=== PATIENT | female | born 1940 | race Asian ===

== ENCOUNTER 2016-12-30 08:42 | Outpatient (CLI) | payer MEDICARE, OTHER ==
--- NOTE | 2016-12-30 12:02 | DEXA Report ---
DEXA SCAN: 12/30/2016 CLINICAL INDICATION: Postmenopausal. TECHNIQUE: Dual energy x-ray absorptiometry (DXA) was performed on a Whatser system. Regions measured are the AP spine, femoral neck, and, if needed, forearm. COMPARISON: None. In accordance with the International Society for Clinical Densitometry (ISCD) guidelines, data from previous exams may be reanalyzed using current recommendations and techniques. This is done to allow a more accurate basis for comparison with the current study. FINDINGS: The data for the lumbar spine is as follows: REGION BMD (g/cm/cm) T-SCORE Z-SCORE L1 0.980 -1.2 0.8 L2 1.010 -1.6 0.5 L3 1.109 -0.8 1.3 L4 1.205 0.0 2.1 TOTAL 1.085 -0.8 1.2 NOTE: All evaluable vertebrae are used for classification. The data for the hip is as follows: REGION BMD (g/cm/cm) T-SCORE Z-SCORE Neck 0.797 -1.7 0.5 TOTAL 0.827 -1.4 0.6 NOTE: The femoral neck or total proximal femur, whichever is lowest, is used for classification. IMPRESSION: THE WHO CLASSIFICATION BASED ON THE INTERNATIONAL REFERENCE STANDARD IS OSTEOPENIA. THE FRACTURE RISK IS INCREASED. RECOMMENDATION: Patients with diagnosis of osteoporosis or osteopenia should have regular bone mineral density assessment. For those eligible for Medicare, routine testing is allowed once every 2 years. Testing frequency can be increased for patients who have rapidly progressing disease or for those who are receiving medical therapy to restore bone mass. COMMENT: World Health Organization (WHO) definitions for osteoporosis and osteopenia: NORMAL BMD: T-score at -1.0 or higher, fracture risk is low. OSTEOPENIA BMD: T-score between -1.0 and -2.5, fracture risk is increased. OSTEOPOROSIS BMD: T-score at -2.5 or lower, fracture risk high. National Osteoporosis Foundation recommends: 1. Obtain adequate dietary calcium (at least 1200 mg per day) and vitamin D (400 -800 international units per day). 2. Participate, as appropriate, in regular weightbearing and muscle- strengthening exercise. 3. Avoid tobacco use and reduce alcohol and caffeine intake. 4. For more detailed information see the website at www.NOF.org. MTDD
== END 2016-12-30 08:43 | disposition home or self-care (01) ==
LOC: DI 08:42
PROVIDERS: ATTEND Family Medicine
DX: M85.88 Other specified disorders of bone density and structure, other site (principal)
CPT/HCPCS: 77080

== ENCOUNTER 2017-01-30 09:25 | Outpatient (CLI) | payer MEDICARE, OTHER ==
--- NOTE | 2017-01-31 19:15 | Mammography Report ---
DIGITAL SCREENING MAMMOGRAM: 01/30/2017 CLINICAL INDICATION: A 76-year-old for screening. COMPARISON: 01/2016, 08/2014, 08/2013, 08/2012, 08/2011, 07/2010, 07/2009. TECHNIQUE: Routine CC and MLO projections were obtained of the breasts. FINDINGS: The breasts again demonstrate heterogeneously dense fibroglandular parenchyma bilaterally. Coarse and punctate, typically benign calcifications are present. No suspicious masses, clustered microcalcifications, or regions of architectural distortion are identified. IMPRESSION: BENIGN FINDINGS. RECOMMENDATION: Routine annual screening unless otherwise clinically indicated. BI-RADS category 2, benign findings. STANDARD QUALIFYING STATEMENTS 1. This examination was reviewed with the aid of Computer-Aided Detection (CAD). 2. A negative or benign imaging report should not delay biopsy if clinically suspicious findings are present. Consider surgical consultation if warranted. More than 5% of cancers are not identified by i maging. 3. Dense breasts may obscure an underlying neoplasm. JOB #: [id number] EXT JOB #:[id number]
== END 2017-01-30 09:26 | disposition home or self-care (01) ==
LOC: DI.N 09:25
PROVIDERS: ATTEND Family Medicine
DX: Z12.31 Encounter for screening mammogram for malignant neoplasm of breast (principal)
CPT/HCPCS: 77067

== ENCOUNTER 2017-11-22 07:33 | Outpatient (CLI) | payer MEDICARE, OTHER ==
[2017-11-22 13:35] LABS: BASOPHILS # (AUTO) 0.1 10^3/uL (0.0-0.1); BASOPHILS % (AUTO) 1.1 %; EOSINOPHILS # (AUTO) 0.2 10^3/uL (0.0-0.7); HGB - HEMOGLOBIN 13.6 g/dL (12.0-16.0); LYMPHOCYTES # (AUTO) 1.6 10^3/uL (1.5-3.5); LYMPHOCYTES % (AUTO) 28.2 %; MEAN CORPUSCULAR HEMOGLOBIN 31.4 pg (27.0-31.0); MEAN CORPUSCULAR HGB CONC 33.8 g/dL (32.0-36.0); MEAN CORPUSCULAR VOLUME 92.9 fL (81.0-99.0); MEAN PLATELET VOLUME 8.4 fL (7.9-10.8); MONOCYTES # (AUTO) 0.4 10^3/uL (0.0-1.0); MONOCYTES % (AUTO) 7.4 %; NEUTROPHILS # (AUTO) 3.4 10^3/uL (1.5-6.6); NEUTROPHILS % (AUTO) 60.3 %; PLT - PLATELET COUNT 307 10^3/uL (130-450); RED BLOOD COUNT 4.34 10^6/uL (4.20-5.40); RED CELL DISTRIBUTION WIDTH 13.6 % (12.0-15.0); WHITE BLOOD COUNT 5.6 x10^3/uL (4.8-10.8)
[2017-11-22 14:06] LABS: THYROID STIMULATING HORMONE 0.27 uIU/mL (0.34-5.60)
[2017-11-22 14:07] LABS: ALBUMIN 4.1 g/dL (3.2-5.5); ALBUMIN/GLOBULIN RATIO 1.3 (1.0-2.2); ALKALINE PHOSPHATASE 65 IU/L (42-121); ALT ALANINE AMINOTRANSFERASE 22 IU/L (10-60); AST ASPARTATE AMINOTRANSFERASE 26 IU/L (10-42); BUN - BLOOD UREA NITROGEN 15 mg/dL (6-20); CALCIUM 9.4 mg/dL (8.5-10.3); CARBON DIOXIDE - CO2 29 mmol/L (21-32); CHLORIDE 102 mmol/L (101-111); CHOL/HDL RATIO 3.5 (<4.4); CHOLESTEROL 235 mg/dL; CREATININE 0.9 mg/dL (0.4-1.0); GFR - MDRD 61 (>89); GLUCOSE 116 mg/dL (70-100); HDL CHOLESTEROL 68 mg/dL; LDL CHOLESTEROL,CALCULATED 135 mg/dL; SODIUM 138 mmol/L (135-145); TOTAL PROTEIN 7.3 g/dL (6.7-8.2); VLDL CHOLESTEROL 32 mg/dL
[2017-11-22 14:35] LABS: HB2 TOTAL 14.6 g/dL; HEMOGLOBIN A1C 0.66 g/dL; HEMOGLOBIN A1C % 6.3 % (4.6-6.2)
[2017-11-22 15:06] LABS: FREE T4 (FREE THYROXINE) 1.27 ng/dL (0.58-1.64)
== END 2017-11-22 07:34 | disposition home or self-care (01) ==
LOC: LAB.WCP 07:33
PROVIDERS: ATTEND Family Medicine
DX: E11.9 Type 2 diabetes mellitus without complications (principal)
CPT/HCPCS: 36415; 80053; 80061; 82043; 83036; 83721; 84439; 84443; 85025

== ENCOUNTER 2018-02-13 09:26 | Outpatient (CLI) | payer MEDICARE, OTHER ==
--- NOTE | 2018-02-15 11:53 | Mammography Report ---
Reason: SCREENING MAMMO Procedure Date: 02/13/2018 Accession Number: [id number] / [id number] Procedure: MGN - Screening Mammo Dig Bilat CPT Code: FULL RESULT: EXAM: Screening Mammo Dig Bilat DATE: 02/13/2018 9:45 AM CLINICAL HISTORY: 77-year-old female for screening. TECHNIQUE: Bilateral CC and MLO views were obtained. COMPARISON: 01/30/2017, 01/19/2016, 09/12/2014, 09/03/2013. FINDINGS: The breasts demonstrate heterogeneously dense fibroglandular parenchyma bilaterally. Typically benign vascular calcifications as well as typically benign coarse calcifications are identified. No suspicious masses, clustered microcalcifications, or regions of architectural distortion are identified. IMPRESSION: Benign findings RECOMMENDATION: Routine annual screening unless otherwise clinically indicated. BIRADS CATEGORY 2: Benign findings STANDARD QUALIFYING STATEMENTS: 1. This examination was reviewed with the aid of Computer-Aided Detection (CAD). 2. A negative or benign imaging report should not delay biopsy if clinically suspicious findings are present. Consider surgical consultation if warrented. More than 5% of cancers are not identified by imaging. 3. Dense breasts may obscure an underlying neoplasm. 4. This examination was reviewed without the aid of 3D breast imaging (tomosynthesis).
== END 2018-02-13 09:27 | disposition home or self-care (01) ==
LOC: DI.N 09:26
DX: Z12.31 Encounter for screening mammogram for malignant neoplasm of breast (principal)
CPT/HCPCS: 77067

== ENCOUNTER 2018-10-10 05:45 | Day surgery (SDC) | payer MEDICARE, OTHER ==
[2018-10-10] MEDS ORDERED: LACTATED RINGERS 1,000 ML IV ONE (07:04)
[2018-10-10] MEDS ORDERED: MIDAZOLAM 2 MG/2 ML VIAL IVP ONE (08:05)
[2018-10-10] MEDS ORDERED: fentaNYL 250 MCG/5 ML VIAL IVP ONE (08:05)
[2018-10-10 08:34] VITALS: BP 107/70
[2018-10-10] MEDS ORDERED: ONDANSETRON ODT 4 MG TABLET ONE (09:36)
== END 2018-10-10 05:46 | disposition home or self-care (01) ==
LOC: SDS 05:45
PROVIDERS: ATTEND Surgery
PROC: 0DBE8ZZ Excision of Large Intestine, Via Natural or Artificial Opening Endoscopic (ICD-10-PCS; 2018-10-10)
PROC: 0DBK8ZZ Excision of Ascending Colon, Via Natural or Artificial Opening Endoscopic (ICD-10-PCS; principal; 2018-10-10 07:30)
DX: Z12.11 Encounter for screening for malignant neoplasm of colon (principal); D12.3 Benign neoplasm of transverse colon; D12.5 Benign neoplasm of sigmoid colon; K63.5 Polyp of colon; K57.30 Diverticulosis of large intestine without perforation or abscess without bleeding; Z80.0 Family history of malignant neoplasm of digestive organs
CPT/HCPCS: 45380; J3010; J7120; Q0162

== ENCOUNTER 2019-01-01 08:00 | Outpatient (CLI) | payer MEDICARE, OTHER ==
[2019-01-01 12:39] LABS: BASOPHILS # (AUTO) 0.1 10^3/uL (0.0-0.1); EOSINOPHILS # (AUTO) 0.2 10^3/uL (0.0-0.7); EOSINOPHILS % (AUTO) 3.8 %; LYMPHOCYTES # (AUTO) 1.9 10^3/uL (1.5-3.5); LYMPHOCYTES % (AUTO) 31.7 %; MEAN CORPUSCULAR HEMOGLOBIN 29.3 pg (27.0-31.0); MEAN CORPUSCULAR HGB CONC 31.6 g/dL (32.0-36.0); MEAN PLATELET VOLUME 10.2 fL (7.9-10.8); MONOCYTES # (AUTO) 0.5 10^3/uL (0.0-1.0); MONOCYTES % (AUTO) 8.5 %; NEUTROPHILS # (AUTO) 3.4 10^3/uL (1.5-6.6); NEUTROPHILS % (AUTO) 54.8 %; PLT - PLATELET COUNT 323 10^3/uL (130-450); RED BLOOD COUNT 4.43 10^6/uL (4.20-5.40); RED CELL DISTRIBUTION WIDTH 13.5 % (12.0-15.0); WHITE BLOOD COUNT 6.1 x10^3/uL (4.8-10.8)
[2019-01-01 12:46] LABS: ALBUMIN/GLOBULIN RATIO 1.1 (1.0-2.2); ALKALINE PHOSPHATASE 69 IU/L (42-121); ALT ALANINE AMINOTRANSFERASE 19 IU/L (10-60); AST ASPARTATE AMINOTRANSFERASE 24 IU/L (10-42); BILIRUBIN,TOTAL 0.8 mg/dL (0.2-1.0); BUN - BLOOD UREA NITROGEN 13 mg/dL (6-20); CALCIUM 9.1 mg/dL (8.5-10.3); CARBON DIOXIDE - CO2 30 mmol/L (21-32); CHLORIDE 105 mmol/L (101-111); CHOL/HDL RATIO 3.3 (<4.4); CHOLESTEROL 201 mg/dL; CREATININE 0.8 mg/dL (0.4-1.0); GFR - MDRD 69 (>89); GLUCOSE 104 mg/dL (70-100); HB2 TOTAL 13.4 g/dL; HDL CHOLESTEROL 61 mg/dL; HEMOGLOBIN A1C 0.6 g/dL; HEMOGLOBIN A1C % 6.2 % (4.6-6.2); LDL CHOLESTEROL,CALCULATED 120 mg/dL; SODIUM 141 mmol/L (135-145); TOTAL PROTEIN 7.5 g/dL (6.7-8.2); VLDL CHOLESTEROL 20 mg/dL
[2019-01-01 13:01] LABS: CREATININE,URINE 82.4 mg/dL; MICROALBUMIN,URINE 1.4 mg/dL (0-300.0)
[2019-01-01 14:15] LABS: FREE T4 (FREE THYROXINE) 1.59 ng/dL (0.58-1.64)
== END 2019-01-01 23:59 | disposition home or self-care (01) ==
LOC: LAB.WCP 08:00
PROVIDERS: ATTEND Family Medicine
DX: E11.9 Type 2 diabetes mellitus without complications (principal); E03.9 Hypothyroidism, unspecified
CPT/HCPCS: 36415; 80053; 80061; 82043; 82570; 83036; 83721; 84439; 84443; 85025

== ENCOUNTER 2019-12-20 08:00 | Outpatient (CLI) | payer MEDICARE, OTHER ==
[2019-12-20 11:35] LABS: BASOPHILS # (AUTO) 0.1 10^3/uL (0.0-0.1); BASOPHILS % (AUTO) 0.8 %; EOSINOPHILS # (AUTO) 0.1 10^3/uL (0.0-0.7); EOSINOPHILS % (AUTO) 1.6 %; HGB - HEMOGLOBIN 14.4 g/dL (12.0-16.0); LYMPHOCYTES # (AUTO) 1.8 10^3/uL (1.5-3.5); LYMPHOCYTES % (AUTO) 28.5 %; MEAN CORPUSCULAR HEMOGLOBIN 31.1 pg (27.0-31.0); MEAN CORPUSCULAR VOLUME 94.4 fL (81.0-99.0); MEAN PLATELET VOLUME 9.9 fL (7.9-10.8); MONOCYTES # (AUTO) 0.5 10^3/uL (0.0-1.0); MONOCYTES % (AUTO) 7.5 %; NEUTROPHILS # (AUTO) 3.8 10^3/uL (1.5-6.6); NEUTROPHILS % (AUTO) 61.3 %; PLT - PLATELET COUNT 323 10^3/uL (130-450); RED BLOOD COUNT 4.63 10^6/uL (4.20-5.40); RED CELL DISTRIBUTION WIDTH 12.9 % (12.0-15.0); WHITE BLOOD COUNT 6.1 x10^3/uL (4.8-10.8)
[2019-12-20 12:14] LABS: ALBUMIN 4.2 g/dL (3.2-5.5); ALBUMIN/GLOBULIN RATIO 1.2 (1.0-2.2); ALKALINE PHOSPHATASE 71 IU/L (42-121); ALT ALANINE AMINOTRANSFERASE 19 IU/L (10-60); AST ASPARTATE AMINOTRANSFERASE 21 IU/L (10-42); BILIRUBIN,TOTAL 1.2 mg/dL (0.2-1.0); BUN - BLOOD UREA NITROGEN 17 mg/dL (6-20); CARBON DIOXIDE - CO2 29 mmol/L (21-32); CHLORIDE 99 mmol/L (101-111); CHOL/HDL RATIO 3.8 (<4.4); CHOLESTEROL 231 mg/dL; GLUCOSE 124 mg/dL (70-100); HDL CHOLESTEROL 61 mg/dL; LDL CHOLESTEROL,CALCULATED 147 mg/dL; LDL/HDL RATIO 2.4 (<4.4); SODIUM 135 mmol/L (135-145); TOTAL PROTEIN 7.8 g/dL (6.7-8.2); VLDL CHOLESTEROL 23 mg/dL
[2019-12-20 12:20] LABS: HEMOGLOBIN A1c% 6.5 % (4.27-6.07)
[2019-12-20 12:29] LABS: CREATININE,URINE 61.1 mg/dL; MICROALBUM/CREATININE RATIO,UR 3.3 ug/mg (<30.0); MICROALBUMIN,URINE 0.2 mg/dL (0-300.0)
[2019-12-20 13:15] LABS: FREE T4 (FREE THYROXINE) 1.46 ng/dL (0.58-1.64)
== END 2019-12-20 23:59 | disposition home or self-care (01) ==
LOC: LAB.WCP 08:00
PROVIDERS: ATTEND Family Medicine
DX: E11.9 Type 2 diabetes mellitus without complications (principal); E03.9 Hypothyroidism, unspecified; E78.5 Hyperlipidemia, unspecified; I10 Essential (primary) hypertension
CPT/HCPCS: 36415; 80053; 80061; 82043; 82570; 83036; 83721; 84439; 84443; 85025

== ENCOUNTER 2021-01-07 08:00 | Outpatient (CLI) | payer MEDICARE, OTHER ==
[2021-01-07 12:15] LABS: BASOPHILS # (AUTO) 0.1 10^3/uL (0.0-0.1); EOSINOPHILS # (AUTO) 0.2 10^3/uL (0.0-0.7); EOSINOPHILS % (AUTO) 2.4 %; HCT - HEMATOCRIT 44.1 % (37.0-47.0); HGB - HEMOGLOBIN 14.3 g/dL (12.0-16.0); LYMPHOCYTES % (AUTO) 28.1 %; MEAN CORPUSCULAR HEMOGLOBIN 30.4 pg (27.0-31.0); MEAN CORPUSCULAR HGB CONC 32.4 g/dL (32.0-36.0); MEAN CORPUSCULAR VOLUME 93.8 fL (81.0-99.0); MONOCYTES # (AUTO) 0.6 10^3/uL (0.0-1.0); MONOCYTES % (AUTO) 7.6 %; NEUTROPHILS # (AUTO) 4.4 10^3/uL (1.5-6.6); NEUTROPHILS % (AUTO) 60.6 %; PLT - PLATELET COUNT 331 10^3/uL (130-450); RED CELL DISTRIBUTION WIDTH 13.2 % (12.0-15.0); WHITE BLOOD COUNT 7.2 x10^3/uL (4.8-10.8)
[2021-01-07 12:38] LABS: ALBUMIN 4.3 g/dL (3.2-5.5); ALBUMIN/GLOBULIN RATIO 1.2 (1.0-2.2); ALKALINE PHOSPHATASE 74 IU/L (42-121); ALT ALANINE AMINOTRANSFERASE 22 IU/L (10-60); AST ASPARTATE AMINOTRANSFERASE 25 IU/L (10-42); BILIRUBIN,TOTAL 1.1 mg/dL (0.2-1.0); BUN - BLOOD UREA NITROGEN 16 mg/dL (6-20); CALCIUM 9.6 mg/dL (8.5-10.3); CARBON DIOXIDE - CO2 30 mmol/L (21-32); CHLORIDE 104 mmol/L (101-111); CHOL/HDL RATIO 3.9 (<4.4); CHOLESTEROL 254 mg/dL; GFR - MDRD 53 (>89); GLUCOSE 117 mg/dL (70-100); HDL CHOLESTEROL 65 mg/dL; LDL CHOLESTEROL,CALCULATED 159 mg/dL; LDL/HDL RATIO 2.4 (<4.4); POTASSIUM 4.1 mmol/L (3.5-5.0); SODIUM 144 mmol/L (135-145); TRIGLYCERIDES 151 mg/dL; URIC ACID 8.9 mg/dL (2.6-7.2); VLDL CHOLESTEROL 30 mg/dL
[2021-01-07 12:52] LABS: THYROID STIMULATING HORMONE < 0.08 uIU/mL (0.34-5.60)
[2021-01-07 13:21] LABS: ESTIMATED AVERAGE GLUCOSE 134 mg/dL (70-100); HEMOGLOBIN A1c% 6.3 % (4.27-6.07)
[2021-01-07 14:24] LABS: FREE T4 (FREE THYROXINE) 1.45 ng/dL (0.58-1.64)
== END 2021-01-07 23:59 | disposition home or self-care (01) ==
LOC: LAB.WCP 08:00
PROVIDERS: ATTEND Family Medicine
DX: E03.9 Hypothyroidism, unspecified (principal); E11.9 Type 2 diabetes mellitus without complications
CPT/HCPCS: 36415; 80053; 80061; 83036; 83721; 84439; 84443; 84550; 85025

== ENCOUNTER 2021-07-19 07:33 | Outpatient (CLI) | payer MEDICARE, OTHER ==
[2021-07-19 12:23] LABS: BASOPHILS # (AUTO) 0.1 10^3/uL (0.0-0.1); BASOPHILS % (AUTO) 0.8 %; EOSINOPHILS # (AUTO) 0.2 10^3/uL (0.0-0.7); EOSINOPHILS % (AUTO) 2.5 %; HCT - HEMATOCRIT 42.9 % (37.0-47.0); HGB - HEMOGLOBIN 14.2 g/dL (12.0-16.0); LYMPHOCYTES % (AUTO) 33.9 %; MEAN CORPUSCULAR HEMOGLOBIN 30.9 pg (27.0-31.0); MEAN CORPUSCULAR HGB CONC 33.1 g/dL (32.0-36.0); MEAN CORPUSCULAR VOLUME 93.3 fL (81.0-99.0); MEAN PLATELET VOLUME 10.2 fL (7.9-10.8); MONOCYTES # (AUTO) 0.5 10^3/uL (0.0-1.0); NEUTROPHILS # (AUTO) 3.2 10^3/uL (1.5-6.6); NEUTROPHILS % (AUTO) 53.6 %; PLT - PLATELET COUNT 347 10^3/uL (130-450); RED CELL DISTRIBUTION WIDTH 13.3 % (12.0-15.0); WHITE BLOOD COUNT 5.9 x10^3/uL (4.8-10.8)
[2021-07-19 12:41] LABS: ALBUMIN 4.3 g/dL (3.2-5.5); ALBUMIN/GLOBULIN RATIO 1.1 (1.0-2.2); ALKALINE PHOSPHATASE 64 IU/L (42-121); ALT ALANINE AMINOTRANSFERASE 23 IU/L (10-60); AST ASPARTATE AMINOTRANSFERASE 25 IU/L (10-42); BILIRUBIN,TOTAL 1.3 mg/dL (0.2-1.0); BUN - BLOOD UREA NITROGEN 18 mg/dL (6-20); CALCIUM 9.2 mg/dL (8.5-10.3); CARBON DIOXIDE - CO2 27 mmol/L (21-32); CHLORIDE 101 mmol/L (101-111); CHOL/HDL RATIO 3.4 (<4.4); CHOLESTEROL 258 mg/dL; CREATININE 0.9 mg/dL (0.4-1.0); GFR - MDRD 60 (>89); GLUCOSE 129 mg/dL (70-100); HDL CHOLESTEROL 75 mg/dL; LDL CHOLESTEROL,CALCULATED 161 mg/dL; LDL/HDL RATIO 2.1 (<4.4); SODIUM 138 mmol/L (135-145); TOTAL PROTEIN 8.1 g/dL (6.7-8.2); TRIGLYCERIDES 110 mg/dL; URIC ACID 7.7 mg/dL (2.6-7.2); VLDL CHOLESTEROL 22 mg/dL
[2021-07-19 13:01] LABS: ESTIMATED AVERAGE GLUCOSE 143 mg/dL (70-100); HEMOGLOBIN A1c% 6.6 % (4.27-6.07)
[2021-07-19 13:56] LABS: CREATININE,URINE 57.5 mg/dL; MICROALBUM/CREATININE RATIO,UR 17.4 ug/mg (<30.0)
== END 2021-07-19 07:34 | disposition home or self-care (01) ==
LOC: LAB.N 07:33
PROVIDERS: ATTEND Family Medicine
DX: E11.9 Type 2 diabetes mellitus without complications (principal); M10.9 Gout, unspecified
CPT/HCPCS: 36415; 80053; 80061; 82043; 82570; 83036; 83721; 84550; 85025

== ENCOUNTER 2021-07-27 08:33 | Outpatient (CLI) | payer MEDICARE, OTHER ==
--- NOTE | 2021-07-27 17:03 | XRAY Report ---
PROCEDURE: Shoulder 2 View BILAT INDICATIONS: BILATERAL SHOULDER PX TECHNIQUE: 2 views of the bilateral shoulders were acquired. COMPARISON: None. FINDINGS: Bones: Moderate to severe left and severe right acromioclavicular joint degenerative changes are mccarthy nt. Moderate bilateral glenohumeral joint degenerative changes are present. There is chondrocalcinosi s of the bilateral shoulder joints. No suspicious bony lesions. No acute fractures or dislocation. Soft tissues: No suspicious soft tissue calcifications. IMPRESSION: Chondrocalcinosis and severe degenerative change at the bilateral shoulder joints. Reviewed by: Molly Parisi MD on 07/27/2021 5:02 PM PDT Approved by: Molly Parisi MD on 07/27/2021 5:02 PM PDT Station ID: [id number]
== END 2021-07-27 08:34 | disposition home or self-care (01) ==
LOC: DI.N 08:33
PROVIDERS: ATTEND Family Medicine
DX: M19.011 Primary osteoarthritis, right shoulder (principal); M19.012 Primary osteoarthritis, left shoulder; M11.212 Other chondrocalcinosis, left shoulder; M11.211 Other chondrocalcinosis, right shoulder

== ENCOUNTER 2021-12-08 17:52 | Outpatient (CLI) | payer MEDICARE, OTHER | END 2021-12-08 17:53 | disposition EMS.NT | LOC: EMS 17:52 | DX: R10.10 Upper abdominal pain, unspecified (principal) ==

== ENCOUNTER 2022-03-22 06:30 | Outpatient (CLI) | payer MEDICARE, OTHER ==
[2022-03-22 12:12] LABS: BASOPHILS # (AUTO) 0.1 10^3/uL (0.0-0.1); BASOPHILS % (AUTO) 0.6 %; EOSINOPHILS # (AUTO) 0.2 10^3/uL (0.0-0.7); EOSINOPHILS % (AUTO) 1.9 %; HCT - HEMATOCRIT 43.1 % (37.0-47.0); HGB - HEMOGLOBIN 13.9 g/dL (12.0-16.0); LYMPHOCYTES # (AUTO) 1.9 10^3/uL (1.5-3.5); LYMPHOCYTES % (AUTO) 18.6 %; MEAN CORPUSCULAR HEMOGLOBIN 30.3 pg (27.0-31.0); MEAN CORPUSCULAR HGB CONC 32.3 g/dL (32.0-36.0); MEAN CORPUSCULAR VOLUME 93.9 fL (81.0-99.0); MONOCYTES # (AUTO) 0.8 10^3/uL (0.0-1.0); MONOCYTES % (AUTO) 7.7 %; NEUTROPHILS # (AUTO) 7.4 10^3/uL (1.5-6.6); PLT - PLATELET COUNT 347 10^3/uL (130-450); RED BLOOD COUNT 4.59 10^6/uL (4.20-5.40); RED CELL DISTRIBUTION WIDTH 13.2 % (12.0-15.0); WHITE BLOOD COUNT 10.4 x10^3/uL (4.8-10.8)
[2022-03-22 12:43] LABS: THYROID STIMULATING HORMONE < 0.08 uIU/mL (0.34-5.60)
[2022-03-22 12:45] LABS: FREE T4 (FREE THYROXINE) 1.61 ng/dL (0.58-1.64)
[2022-03-22 12:53] LABS: CREATININE,URINE 102.5 mg/dL; MICROALBUM/CREATININE RATIO,UR 6.8 ug/mg (<30.0); MICROALBUMIN,URINE 0.7 mg/dL (0-300.0)
[2022-03-22 13:03] LABS: ALBUMIN 4.2 g/dL (3.2-5.5); ALBUMIN/GLOBULIN RATIO 1.2 (1.0-2.2); ALKALINE PHOSPHATASE 68 IU/L (42-121); ALT ALANINE AMINOTRANSFERASE 29 IU/L (10-60); AST ASPARTATE AMINOTRANSFERASE 29 IU/L (10-42); BILIRUBIN,TOTAL 0.9 mg/dL (0.2-1.0); BUN - BLOOD UREA NITROGEN 16 mg/dL (6-20); CALCIUM 9.5 mg/dL (8.5-10.3); CARBON DIOXIDE - CO2 28 mmol/L (21-32); CHLORIDE 99 mmol/L (101-111); CHOL/HDL RATIO 3.2 (<4.4); CHOLESTEROL 254 mg/dL; CREATININE 0.8 mg/dL (0.4-1.0); GFR - MDRD 69 (>89); GLUCOSE 128 mg/dL (70-100); HDL CHOLESTEROL 79 mg/dL; LDL CHOLESTEROL,CALCULATED 157 mg/dL; SODIUM 139 mmol/L (135-145); TOTAL PROTEIN 7.8 g/dL (6.7-8.2); TRIGLYCERIDES 91 mg/dL; VLDL CHOLESTEROL 18 mg/dL
[2022-03-22 13:38] LABS: ESTIMATED AVERAGE GLUCOSE 137 mg/dL (70-100); HEMOGLOBIN A1c% 6.4 % (4.27-6.07)
== END 2022-03-22 06:31 | disposition home or self-care (01) ==
LOC: LAB.N 06:30
PROVIDERS: ATTEND Nurse Practitioner
DX: I10 Essential (primary) hypertension (principal); E78.5 Hyperlipidemia, unspecified; E11.9 Type 2 diabetes mellitus without complications; G62.9 Polyneuropathy, unspecified; E03.9 Hypothyroidism, unspecified
CPT/HCPCS: 36415; 80053; 80061; 82043; 82570; 82607; 83036; 83721; 84439; 84443; 85025

== ENCOUNTER 2022-07-12 13:39 | Outpatient (CLI) | payer MEDICARE, OTHER ==
--- NOTE | 2022-07-12 17:04 | DEXA Report ---
PROCEDURE: Dexa Spine and/or Hip INDICATIONS: POSTMENOPAUSAL TECHNIQUE: Dual energy x-ray absorptiometry (DXA) was performed on a iCrossing System. Regions measur ed are the AP Spine, femoral neck, and if needed forearm. COMPARISON: 12/30/2016 FINDINGS: Lumbar Spine: Bone Mineral Density 1.079 g/cm/cm,T score -0.8, normal. Left Femoral Neck: Bone Mineral Density 0.739 g/cm/cm, T score -2.1, osteopenia. Left Hip: Bone Mineral Density 0.779 g/cm/cm,T score -1.8, osteopenia (T score greater or equal to -1.0: NORMAL) (T score from -1.1 to -2.4: OSTEOPENIA) (T score less than or equal to -2.5 to: OSTEOPOROSIS) Impression: Osteopenia. Patients with diagnosis of osteoporosis or osteopenia should have regular bone mineral density assess ment. For those eligible for Medicare, routine testing is allowed once every 2 years. Testing frequ ency can be increased for patients who have rapidly progressing disease or for those who are receivin g medical therapy to restore bone mass. Reviewed by: Nilton Rodriguez on 07/12/2022 5:03 PM PDT Approved by: Nilton Rodriguez on 07/12/2022 5:03 PM PDT Station ID: [id number]
== END 2022-07-12 13:40 | disposition home or self-care (01) ==
LOC: DI 13:39
PROVIDERS: ATTEND Nurse Practitioner
DX: Z78.0 Asymptomatic menopausal state (principal); M85.89 Other specified disorders of bone density and structure, multiple sites

== ENCOUNTER 2022-07-12 13:40 | Outpatient (CLI) | payer MEDICARE, OTHER ==
--- NOTE | 2022-07-13 10:04 | Mammography Report ---
BILATERAL DIGITAL SCREENING MAMMOGRAM 3D/2D: 07/12/2022 CLINICAL: Routine screening. Comparison is made to exams dated: 01/30/2017 mammogram, 02/13/2018 mammogram, 01/19/2016 mammogram, 09/12/2014 mammogram, and 09/03/2013 mammogram - [facility]. There are scattered areas of fibroglandular density in both breasts (category b / 25%-50% glandular t issue). There is a new irregular high density mass with a microlobulated margin in the left breast at 12 o'cl ock middle depth. No other significant masses, calcifications, or other findings are seen in either breast. IMPRESSION: INCOMPLETE: NEEDS ADDITIONAL IMAGING EVALUATION The new irregular high density mass in the left breast is indeterminate. Additional views with possi ble ultrasound are recommended. Based on the Tyrer Cuzick model (a risk assessment model) the patients lifetime risk is 0.6% and her 10 year risk is 0.0%. According to the ACR, ACS, and NCCN guidelines, an annual breast MRI exam gilmar g with mammogram is recommended if the patients lifetime risk is 20% or greater. This exam was interpreted at Station ID: [id number]. NOTE: For mammograms, a report in lay terms will be sent to the patient. Approximately 15% of breast malignancies will not be visualized mammographically. In the management of a palpable breast mass, a negative mammogram must not discourage biopsy of a clinically suspicious lesion. Electronically Signed By: Shani child/penrad:07/12/2022 18:13:50 ACR BI-RADS Category 0: Incomplete 3340F PARENCHYMAL PATTERN: (A) - The breast(s) demonstrate(s) scattered fibroglandular densities. BI-RADS CATEGORY: (0) - 0 Mammo and [place] [id number] Immediate follow-up LATERALITY: (B)
== END 2022-07-12 13:41 | disposition home or self-care (01) ==
LOC: DI 13:40
PROVIDERS: ATTEND Nurse Practitioner
DX: Z12.31 Encounter for screening mammogram for malignant neoplasm of breast (principal); N63.25 Unspecified lump in the left breast, overlapping quadrants

== ENCOUNTER 2022-08-11 07:46 | Outpatient (CLI) | payer MEDICARE, OTHER ==
--- NOTE | 2022-08-11 10:10 | Mammography Report ---
UNILATERAL LEFT DIGITAL DIAGNOSTIC MAMMOGRAM 3D/2D: 08/11/2022 CLINICAL: Patient returns for additional imaging over a suspected mass in the left breast. Comparison is made to exams dated: 07/12/2022 mammogram, 02/13/2018 mammogram, 01/30/2017 mammogram, and 01/19/2016 mammogram - [facility]. There are scattered areas of fibroglandular density in the left breast (category b / 25%-50% glandula r tissue). There is a new irregular high density mass with a microlobulated margin in the left breast at 12 o'cl ock middle depth. No other significant masses or calcifications are seen in the breast. IMPRESSION: INCOMPLETE: NEEDS ADDITIONAL IMAGING EVALUATION The new irregular high density mass in the left breast is indeterminate. A targeted ultrasound is recommended and will immediately follow. Based on the Tyrer Cuzick model (a risk assessment model) the patients lifetime risk is 0.6% and her 10 year risk is 0.0%. According to the ACR, ACS, and NCCN guidelines, an annual breast MRI exam gilmar g with mammogram is recommended if the patients lifetime risk is 20% or greater. This exam was interpreted at Station ID: [id number]. NOTE: For mammograms, a report in lay terms will be sent to the patient. Approximately 15% of breast malignancies will not be visualized mammographically. In the management of a palpable breast mass, a negative mammogram must not discourage biopsy of a clinically suspicious lesion. Electronically Signed By: Britton Vela M.D. slc/:08/11/2022 09:18:18 ACR BI-RADS Category 0: Incomplete 3340F PARENCHYMAL PATTERN: (A) - The breast(s) demonstrate(s) scattered fibroglandular densities. BI-RADS CATEGORY: (0) - 0 Ultrasound [id number] Immediate follow-up LATERALITY: (B)
--- NOTE | 2022-08-11 10:10 | Ultrasound Report ---
LIMITED ULTRASOUND OF LEFT BREAST: 08/11/2022 CLINICAL: Patient returns today to evaluate a focal asymmetry in the left breast. Comparison is made to exams dated: 08/11/2022 mammogram, 07/12/2022 mammogram, 02/13/2018 mammogram, a nd 01/30/2017 mammogram - [facility]. Color flow and real-time ultrasound of the left breast 12 o'clock region were performed. Conn scale images of the real-time examination were reviewed. There is a new 0.7 cm x 0.6 cm x 0.5 cm partially solid mass with a microlobulated margin in the left breast at 12 o'clock middle depth 6 cm from the nipple. This partially solid mass is hypoechoic. T his correlates with mammography findings. Color flow imaging demonstrates that there is no vasculari ty present. IMPRESSION: SUSPICIOUS OF MALIGNANCY The new 0.7 cm x 0.6 cm x 0.5 cm partially solid mass in the left breast is at a low suspicion for ma lignancy. An ultrasound guided biopsy is recommended. Will screen left axilla on the day of the biopsy. Exam findings were discussed with the patient by Dr. Siegel. This exam was interpreted at Station ID: [id number]. Electronically Signed By: Britton Veal M.D. slc/:08/11/2022 09:48:44 Ultrasound BI-RADS: 4a Low suspicion for malignancy BI-RADS CATEGORY: (4a) - Low Susp Ultrasound [id number] Immediate follow-up LATERALITY: (B)
== END 2022-08-11 07:47 | disposition home or self-care (01) ==
LOC: DI 07:46
PROVIDERS: ATTEND Nurse Practitioner
DX: R92.8 Other abnormal and inconclusive findings on diagnostic imaging of breast (principal)

== ENCOUNTER 2022-08-23 11:49 | Outpatient (CLI) | payer MEDICARE, OTHER ==
[2022-08-23] MEDS ORDERED: LIDOCAINE-MPF 1% 5 ML VIAL ONE (13:04)
[2022-08-23] MEDS ORDERED: LIDOCAINE-MPF 1% 5 ML VIAL TD ONE (16:04)
--- NOTE | 2022-08-24 10:59 | Mammography Report ---
UNILATERAL LEFT DIGITAL DIAGNOSTIC MAMMOGRAM POST-PROCEDURE IMAGING FOR MARKER PLACEMENT: 08/23/2022 CLINICAL: Post left breast ultrasound biopsy clip placement imaging. Comparison is made to exams dated: 08/11/2022 ultrasound, 08/11/2022 mammogram, 07/12/2022 mammogram, 1 mammogram, 01/30/2017 mammogram, and 01/19/2016 mammogram - [facility]. There are scattered areas of fibroglandular density in the left breast (category b / 25%-50% glandula r tissue). There is a marker clip in the appropriate position in the left breast at 12 o'clock middle depth 6 cm from the nipple. IMPRESSION: POST PROCEDURE MAMMOGRAM FOR MARKER PLACEMENT There was a successful marker clip placement in the left breast middle depth. Based on the Tyrer Cuzick model (a risk assessment model) the patients lifetime risk is 0.6% and her 10 year risk is 0.0%. According to the ACR, ACS, and NCCN guidelines, an annual breast MRI exam gilmar g with mammogram is recommended if the patients lifetime risk is 20% or greater. This exam was interpreted at Station ID: [id number]. NOTE: For mammograms, a report in lay terms will be sent to the patient. Approximately 15% of breast malignancies will not be visualized mammographically. In the management of a palpable breast mass, a negative mammogram must not discourage biopsy of a clinically suspicious lesion. Electronically Signed By: Zev Eldridge M.D. lc/:08/23/2022 16:33:43 ACR BI-RADS Category Post-procedure mammogram for marker placement PARENCHYMAL PATTERN: (A) - The breast(s) demonstrate(s) scattered fibroglandular densities. BI-RADS CATEGORY: () - Unspecified - other recall n/a LATERALITY: (B)
--- NOTE | 2022-08-26 12:41 | Ultrasound Report ---
ULTRASOUND GUIDED BIOPSY LEFT BREAST USING VACUUM DEVICE WITH MARKING DEVICE INSERTED AND POST MAMMOG RAPHIC IMAGIN08/23/2022 CLINICAL: Left breast mass. PATIENT CONSENT: Risks (minor bleeding, infection, vasovagal reaction and repeat procedure), benefits and alternatives were explained to the patient and written informed consent was obtained. Correlation is made to exams dated: 08/23/2022 mammogram, 08/11/2022 ultrasound, 08/11/2022 mammogram, mammogram, 02/13/2018 mammogram, and 01/30/2017 mammogram - [facility]. An ultrasound guided biopsy using real-time ultrasound was performed for the concerning 0.7 cm x 0.6 cm x 0.5 cm mass located in the left breast at 12 o'clock middle depth 6 cm from the nipple. This wa s described on the previous ultrasound report. The skin was prepped in the usual manner. Local anesthetic was administered to the access site. A s kin naomi was made in the breast. A 12 gauge biopsy needle was placed adjacent to the abnormality und er ultrasound guidance. Once the needle was documented to be in the correct location, three specimen s were obtained using a vacuum assisted device. A coil clip was inserted into the biopsy cavity. Post procedure mammographic imaging was obtained. The specimens were sent to the laboratory for pathological analysis. IMPRESSION: ULTRASOUND GUIDED BIOPSY HIGH RISK BENIGN Ultrasound guided biopsy of the 0.7 cm x 0.6 cm x 0.5 cm mass in the left breast at 12 o'clock middle depth 6 cm from the nipple was successful. Pathology indicates high risk benign complex papillary lesion. Pathology results are concordant with imaging findings. A surgical consultation is recommended. This exam was interpreted at Station ID: [id number]. Zev Vela M.D. ,slc/:08/26/2022 11:17:42 BI-RADS CATEGORY: () - Unspecified - other recall n/a LATERALITY: (B)
== END 2022-08-23 11:50 | disposition home or self-care (01) ==
LOC: DI 11:49
PROVIDERS: ATTEND Nurse Practitioner
DX: D24.2 Benign neoplasm of left breast (principal)
CPT/HCPCS: 19083

== ENCOUNTER 2022-11-15 07:54 | Outpatient (CLI) | payer MEDICARE, OTHER ==
[2022-11-15 12:10] LABS: BASOPHILS # (AUTO) 0.1 10^3/uL (0.0-0.1); BASOPHILS % (AUTO) 0.9 %; EOSINOPHILS # (AUTO) 0.2 10^3/uL (0.0-0.7); EOSINOPHILS % (AUTO) 2.9 %; HCT - HEMATOCRIT 42.7 % (37.0-47.0); HGB - HEMOGLOBIN 13.8 g/dL (12.0-16.0); LYMPHOCYTES % (AUTO) 30.1 %; MEAN CORPUSCULAR HEMOGLOBIN 30.8 pg (27.0-31.0); MEAN CORPUSCULAR HGB CONC 32.3 g/dL (32.0-36.0); MEAN CORPUSCULAR VOLUME 95.3 fL (81.0-99.0); MEAN PLATELET VOLUME 10.2 fL (7.9-10.8); MONOCYTES # (AUTO) 0.5 10^3/uL (0.0-1.0); MONOCYTES % (AUTO) 7.3 %; NEUTROPHILS # (AUTO) 3.8 10^3/uL (1.5-6.6); NEUTROPHILS % (AUTO) 58.5 %; PLT - PLATELET COUNT 327 10^3/uL (130-450); RED BLOOD COUNT 4.48 10^6/uL (4.20-5.40); RED CELL DISTRIBUTION WIDTH 13.1 % (12.0-15.0); WHITE BLOOD COUNT 6.6 x10^3/uL (4.8-10.8)
[2022-11-15 12:28] LABS: ALBUMIN 4.4 g/dL (3.2-5.5); ALBUMIN/GLOBULIN RATIO 1.3 (1.0-2.2); ALKALINE PHOSPHATASE 79 IU/L (42-121); ALT ALANINE AMINOTRANSFERASE 24 IU/L (10-60); AST ASPARTATE AMINOTRANSFERASE 25 IU/L (10-42); BILIRUBIN,TOTAL 0.9 mg/dL (0.2-1.0); BUN - BLOOD UREA NITROGEN 14 mg/dL (6-20); CALCIUM 9.9 mg/dL (8.5-10.3); CARBON DIOXIDE - CO2 33 mmol/L (21-32); CHLORIDE 104 mmol/L (101-111); CHOL/HDL RATIO 3.1 (<4.4); CHOLESTEROL 222 mg/dL; CREATININE 0.8 mg/dL (0.6-1.3); GFR - MDRD 69 (>89); GLUCOSE 123 mg/dL (74-104); HDL CHOLESTEROL 71 mg/dL; LDL CHOLESTEROL,CALCULATED 122 mg/dL; LDL/HDL RATIO 1.7 (<4.4); POTASSIUM 4.6 mmol/L (3.5-4.5); SODIUM 139 mmol/L (135-145); TOTAL PROTEIN 7.8 g/dL (6.4-8.9); TRIGLYCERIDES 143 mg/dL (48-352); VLDL CHOLESTEROL 29 mg/dL
[2022-11-15 12:36] LABS: THYROID STIMULATING HORMONE 0.09 uIU/mL (0.34-5.60)
[2022-11-15 12:46] LABS: ESTIMATED AVERAGE GLUCOSE 134 mg/dL (70-100); HEMOGLOBIN A1c% 6.3 % (4.27-6.07)
== END 2022-11-15 07:55 | disposition home or self-care (01) ==
LOC: LAB.N 07:54
PROVIDERS: ATTEND Nurse Practitioner
DX: I10 Essential (primary) hypertension (principal); E11.9 Type 2 diabetes mellitus without complications; E78.5 Hyperlipidemia, unspecified; E03.9 Hypothyroidism, unspecified
CPT/HCPCS: 36415; 80053; 80061; 83036; 83721; 84439; 84443; 85025

== ENCOUNTER 2022-11-28 07:05 | Day surgery (SDC) | payer MEDICARE, OTHER ==
[2022-11-28] MEDS ORDERED: ceFAZolin 1 GM VIAL ONE (07:19)
[2022-11-28] MEDS ORDERED: ACETAMINOPHEN 500 MG TABLET PO ONE (07:19)
[2022-11-28] MEDS ORDERED: CELECOXIB 100 MG CAPSULE PO ONE (07:19)
[2022-11-28] MEDS ORDERED: LACTATED RINGERS 1,000 ML IV ONE ×2 (07:27→13:36)
[2022-11-28] MEDS ORDERED: ALPRAZolam 0.25 MG TABLET PO ONE (08:01)
[2022-11-28] MEDS ORDERED: LIDOCAINE-MPF 1% 5 ML VIAL ONE (08:21)
[2022-11-28] MEDS ORDERED: PROPOFOL 500 MG/50 ML 500 MG/50 ML VIAL ONE ×2 (08:55→12:13)
[2022-11-28] MEDS ORDERED: BUPIVACAINE 0.25% PF 30 ML VIAL ONE (09:00)
[2022-11-28] MEDS ORDERED: LIDOCAINE 1%-EPI 1:100000 20 ML MDV ONE (09:00)
[2022-11-28] MEDS ORDERED: NALOXONE 0.4 MG/ML VIAL IVP PRN ×2 (09:15→09:23)
[2022-11-28] MEDS ORDERED: ATROPINE ABBOJECT 1 MG/10 ML SYRINGE IVP PRN ×2 (09:15→09:23)
[2022-11-28] MEDS ORDERED: ONDANSETRON 4 MG/2 ML VIAL IVP PRN ×3 (09:15→13:33)
[2022-11-28] MEDS ORDERED: MORPHINE 2 MG/ML CARPUJECT IVP PRN (09:15)
[2022-11-28] MEDS ORDERED: fentaNYL 100 MCG/2 ML VIAL IVP PRN ×2 (09:15→09:23)
[2022-11-28] MEDS ORDERED: HYDROmorphone 0.5 MG/0.5 ML SYRINGE IVP PRN ×3 (09:15→13:33)
[2022-11-28] MEDS ORDERED: ePHEDrine 50 MG/ML VIAL IVP PRN (09:23)
--- NOTE | 2022-11-28 09:23 | ANESTHESIA ---
Pre-Anesthesia VS, & Labs - Diagnosis complex papillary lesion - Procedure L breast excisional biopsy-wire Vital Signs: Temp Pulse Resp BP Pulse Ox O2 Flow Rate 36.5 C 74 12 145/80 H 97 11/28/22 07:15 11/28/22 07:15 11/28/22 07:15 11/28/22 07:15 11/28/22 07:15 Height: 5 ft 1 in Weight (kg): 55.5 kg Body Mass Index: 23.1 BMI Classification: Normal - NPO >8 hours - Is Patient ?: No - Lab Results Lab results reviewed: Yes Home Medications and Allergies Active Medications Atropine Sulfate (Atropine Abboject 1 Mg/10 Ml Syringe) 0.5 mg IVP Q5M PRN PRN Reason: Bradycardia Stop: 11/29/22 09:16 Fentanyl (Fentanyl 100 Mcg/2 Ml Vial) 25 - 50 mcg IVP Q5M PRN PRN Reason: BREAKTHROUGH PAIN (2nd Choice) Stop: 11/29/22 09:16 Hydromorphone HCl (Hydromorphone 0.5 Mg/0.5 Ml Syringe) 0.2 - 0.6 mg IVP Q5M PRN PRN Reason: PAIN (First Choice) Stop: 11/29/22 09:16 Lactated Ringer's (Lr) 1,000 mls @ 100 mls/hr IV .Q10H MELVIN Stop: 11/28/22 19:59 Morphine Sulfate (Morphine 2 Mg/Ml Carpuject) 2 - 4 mg IVP Q5M PRN PRN Reason: PAIN (3rd Choice) Stop: 11/29/22 09:16 Naloxone HCl (Naloxone 0.4 Mg/Ml Vial) 0.1 mg IVP Q2M PRN PRN Reason: RESP RATE <8 Stop: 11/29/22 09:16 Ondansetron HCl (Ondansetron 4 Mg/2 Ml Vial) 4 mg IVP ONCE PRN PRN Reason: N/V (First Choice) Stop: 11/29/22 09:16 Amlodipine Besylate 10 mg PO DAILY 10/09/18 Levothyroxine Sodium [Synthroid] 75 mcg PO DAILY 10/09/18 Calcium Carbonate [Calcium] 1,200 mg PO DAILY 10/11/22 Glucosamine/D3/Boswellia Kesha [Osteo Bi-Flex Tablet] 1 each PO DAILY 10/11/22 allopurinoL [Zyloprim] 100 mg PO DAILY 10/11/22 Allergies/Adverse Reactions: Allergies Allergy/AdvReac Type Severity Reaction Status Date / Time lisinopril AdvReac Unknown Verified 12/08/21 20:00 simvastatin AdvReac Unknown Verified 12/08/21 20:00 Anes History & Medical History - Anesthetic History Anesthesia Complications: reports: No previous complications Family history of Anesthesia Complications: Denies Family history of Malignant Hyperthermia: Denies - Medical History Cardiovascular: reports: Hypertension Pulmonary: reports: None Gastrointestinal: reports: None Urinary: reports: Frequency Musculoskeletal: reports: Osteoarthritis, Chronic back pain Endocrine/Autoimmune: reports: Type 2 diabetes, HyPOthyroidism Skin: reports: None Smoking Status: Never smoker - Surgical History General: reports: Colonoscopy Eyes Ears Nose Throat (EENT): reports: Cataracts Gynecologic: reports: Hysterectomy Exam General: Alert, Oriented x3, Cooperative Dental: WNL Mouth Openin Fingerbreadth Neck Mobility: Normal Mallampati classification: II Thyromental Distance: 4-6 cm Respiratory: Lungs clear Cardiovascular: Regular rate Plan Anesthesia Type: General Consent for Procedure(s) Verified and Reviewed: Yes Code Status: Attempt Resuscitation ASA classification: 2-Mild systemic disease Is this case an emergency?: No
[2022-11-28] MEDS ORDERED: LACTATED RINGERS 1,000 ML IV SCH ×2 (10:00)
[2022-11-28] MEDS ORDERED: fentaNYL 100 MCG/2 ML VIAL ONE (12:15)
[2022-11-28] MEDS ORDERED: DEXAMETHASONE 4 MG/ML VIAL ONE (12:49)
[2022-11-28] MEDS ORDERED: LIDOCAINE 1%-EPI 1:100000 20 ML MDV SUBQ ONE ×2 (12:55)
[2022-11-28] MEDS ORDERED: BUPIVACAINE 0.25% PF 30 ML VIAL SUBQ ONE ×2 (12:56)
[2022-11-28] MEDS ORDERED: oxyCODONE 5 MG TABLET PO PRN (13:33)
[2022-11-28] MEDS ORDERED: ACETAMINOPHEN 500 MG TABLET PO PRN (13:34)
--- NOTE | 2022-11-28 13:40 | OPERATIVE REPORT ---
Operative Report - General Procedure Date: 11/28/22 Planned Procedure: wire localized excisional biopsy, left breast Pre-Op Diagnosis: complex papillary lesion Procedure Performed: wire localized excisional biopsy, left breast Post Op Diagnosis: complex papillary lesion - Procedure Note Primary Surgeon: Gino Anesthesia Provider: Ita Horton CRNA Anesthesia Technique: General LMA, Local Pathology: 1. left breast excisional biopsy; short superior, long lateral, double anterior Estimated Blood Loss (mL): 5 Indications: The patient had abnormal findings on her mammogram, leading to biopsy. This demonstrated a complex papillary lesion and excisional biopsy was recommended. The patient was seen and evaluated in clinic where we discussed the risks, benefits, and alternatives of the procedure including bleeding, infection, damage to surrounding structures, numbness in the area, and upstaging of the lesion requiring further surgery or procedures. The patient voiced understanding, her questions were answered, and she wished to proceed. A consent was signed by the patient prior to surgery. Findings: 1.Left breast excisional biopsy, oriented on the back table, clip present in specimen on specimen mammogram Complications: None - Other Other Information/Narrative: The patient was taken to the operating room and placed in the supine position. Preop antibiotics were given. ERAS medications were given. The patient was prepped and draped in the usual sterile fashion. A preop surgical timeout was performed. Attention was turned to the patient's left breast. An incision was made which incorporated the wire, following the patient's skin folds, at the 3 o'clock position. Skin flaps were raised superiorly and inferiorly to the incision. The dissection was carried down to the wire using electrocautery. At this point, serrated scissors were used to perform a lumpectomy staying approximately 1 cm away from the wire in all dimensions. The specimen was removed and oriented with suture on the back table. The specimen was sent to mammography and the biopsy clip was confirmed to be within the specimen.The edges of the biopsy cavity were inspected and there were no palpable abnormalities. Hemostasis was confirmed. The biopsy cavity was irrigated with warm normal saline. Clips were placed in the superior, inferior, medial, lateral, anterior, and posterior margins of the biopsy cavity. The deep dermal tissues were closed with 3-0 Vicryl in an interrupted fashion. The skin was closed with 4-0 Monocryl in a running subcuticular fashion. The patient tolerated the procedure well. There were no complications.
--- NOTE | 2022-11-28 14:17 | ANESTHESIA POST OP EVALUATION ---
Anesthesia Post Eval - Post Anesthesia Eval Vitals: Last Vital Signs Temp 36.1 C L 11/28/22 14:08 Pulse 63 11/28/22 14:08 Resp 17 11/28/22 14:08 BP 145/74 H 11/28/22 14:08 Pulse Ox 98 11/28/22 14:08 O2 Flow Rate CV Function Including HR & BP: Stable Pain Control: Satisfactory Nausea & Vomiting: Negative Mental Status: Baseline Respiratory Status: Airway Patent Hydration Status: Satisfactory Anesthesia Complications: None
[2022-11-28 15:29] VITALS: BP 145/65; O2SAT 96
[2022-11-28] MEDS ORDERED: LIDOCAINE-MPF 1% 5 ML VIAL TD ONE (18:33)
--- NOTE | 2022-11-30 10:43 | Mammography Report ---
SPECIMEN LEFT BREAST: 11/28/2022 CLINICAL: Left breast specimen. Correlation is made to exams dated: 11/28/2022 mammogram, 08/23/2022 mammogram, 08/11/2022 mammogram, mammogram, and 02/13/2018 mammogram - [facility]. A lumpectomy specimen was imaged for the previous biopsy site located in the left breast at 12 o'benitez ck middle depth. IMPRESSION: SPECIMEN The imaged specimen includes a biopsy clip and the distal portion of the biopsy wire. This exam was interpreted at Station ID: [id number]. Shani child/brennen:11/29/2022 09:33:19 BI-RADS CATEGORY: () - Unspecified - other recall n/a LATERALITY: (B)
--- NOTE | 2022-12-07 10:25 | Ultrasound Report ---
ULTRASOUND GUIDED WIRE LOCALIZATION LEFT BREAST: 11/28/2022 CLINICAL: Left Breast Wire Localization. Correlation is made to exams dated: 08/23/2022 ultrasound biopsy and 08/23/2022 mammogram - [facility]. A wire localization using ultrasound guidance was performed for the 0.7 cm x 0.6 cm x 0.5 cm mass loc ated in the left breast at 12 o'clock middle depth 6 cm from the nipple. The skin was prepped in the usual manner. A wire was inserted into the targeted area under ultrasound guidance. IMPRESSION: WIRE LOCALIZATION Wire localization for the 0.7 cm x 0.6 cm x 0.5 cm mass in the left breast at 12 o'clock middle depth 6 cm from the nipple was successful. This exam was interpreted at Station ID: [id number]. Shahriar Robledo M.D. crm/:12/07/2022 08:38:13 BI-RADS CATEGORY: () - Unspecified - other recall n/a LATERALITY: (B)
--- NOTE | 2022-12-07 10:25 | Mammography Report ---
UNILATERAL LEFT DIGITAL DIAGNOSTIC MAMMOGRAM: 11/28/2022 CLINICAL: Post left wire localization with ultrasound. Comparison is made to exams dated: 08/11/2022 mammogram and 08/23/2022 mammogram - [facility]. There are scattered areas of fibroglandular density in the left breast (category b / 25%-50% glandula r tissue). There is a wire adjacent to the marker clip in the appropriate position in the left breast at 12 o'cl ock middle depth 6 cm from the nipple. IMPRESSION: POST PROCEDURE MAMMOGRAM FOR MARKER PLACEMENT There was a successful wire localization placement in the left breast middle depth. Based on the Tyrer Cuzick model (a risk assessment model) the patients lifetime risk is 0.6% and her 10 year risk is 0.0%. According to the ACR, ACS, and NCCN guidelines, an annual breast MRI exam gilmar g with mammogram is recommended if the patients lifetime risk is 20% or greater. This exam was interpreted at Station ID: [id number]. NOTE: For mammograms, a report in lay terms will be sent to the patient. Approximately 15% of breast malignancies will not be visualized mammographically. In the management of a palpable breast mass, a negative mammogram must not discourage biopsy of a clinically suspicious lesion. Electronically Signed By: Shahriar Robledo M.D. crm/:12/07/2022 08:55:12 ACR BI-RADS Category Post-procedure mammogram for marker placement PARENCHYMAL PATTERN: (A) - The breast(s) demonstrate(s) scattered fibroglandular densities. BI-RADS CATEGORY: () - Unspecified - other recall n/a LATERALITY: (B)
== END 2022-11-28 07:06 | disposition home or self-care (01) ==
LOC: DI 07:05
PROVIDERS: ATTEND Surgery
PROC: 0HBU0ZX Excision of Left Breast, Open Approach, Diagnostic (ICD-10-PCS; principal; 2022-11-28 09:00)
DX: C50.912 Malignant neoplasm of unspecified site of left female breast (principal); Z17.0 Estrogen receptor positive status [ER+]; E11.9 Type 2 diabetes mellitus without complications; I10 Essential (primary) hypertension
CPT/HCPCS: 19285

== ENCOUNTER 2022-12-26 07:22 | Day surgery (SDC) | payer MEDICARE, OTHER ==
[~2022-12-26 07:22] MED LIST: ACETAMINOPHEN 500 MG TABLET PO ONE; ceFAZolin 2 GM VIAL ONE
[2022-12-26] MEDS ORDERED: LACTATED RINGERS 1,000 ML IV ONE ×2 (07:30→10:40)
--- NOTE | 2022-12-26 07:48 | ANESTHESIA ---
Pre-Anesthesia VS, & Labs - Diagnosis L breast invasive ductal carcinoma - Procedure Re-excision L breast, superior margin Vital Signs: Temp Pulse Resp BP Pulse Ox O2 Flow Rate 36 C L 78 20 154/69 H 98 12/26/22 07:39 12/26/22 07:39 12/26/22 07:39 12/26/22 07:39 12/26/22 07:39 Height: 5 ft 1 in Weight (kg): 55.2 kg Body Mass Index: 23.0 BMI Classification: Normal - NPO >8 hours - Is Patient ?: No - Lab Results Lab results reviewed: Yes Home Medications and Allergies Amlodipine Besylate 10 mg PO DAILY 10/09/18 Levothyroxine Sodium [Synthroid] 75 mcg PO DAILY 10/09/18 Calcium Carbonate [Calcium] 1,200 mg PO DAILY 10/11/22 Glucosamine/D3/Boswellia Kesha [Osteo Bi-Flex Tablet] 1 each PO DAILY 10/11/22 allopurinoL [Zyloprim] 100 mg PO DAILY 10/11/22 Anastrozole 1 mg PO DAILY 12/21/22 Allergies/Adverse Reactions: Allergies Allergy/AdvReac Type Severity Reaction Status Date / Time lisinopril AdvReac Unknown Verified 12/08/21 20:00 simvastatin AdvReac Unknown Verified 12/08/21 20:00 Anes History & Medical History - Anesthetic History Anesthesia Complications: reports: No previous complications Family history of Anesthesia Complications: Denies Family history of Malignant Hyperthermia: Denies - Medical History Cardiovascular: reports: Hypertension, High cholesterol Pulmonary: reports: None Gastrointestinal: reports: GERD, Colon polyps Urinary: reports: Frequency Musculoskeletal: reports: Osteoarthritis, Gout, Chronic back pain Endocrine/Autoimmune: reports: Type 2 diabetes, HyPOthyroidism Skin: reports: None Smoking Status: Never smoker - Surgical History General: reports: Cholecystectomy, Colonoscopy, Other Eyes Ears Nose Throat (EENT): reports: Cataracts Gynecologic: reports: Hysterectomy, Other (previous breast excision 1 month ago) Exam General: Alert, Oriented x3, Cooperative Dental: WNL Mouth Openin Fingerbreadth Neck Mobility: Normal Mallampati classification: II Thyromental Distance: 4-6 cm Respiratory: Lungs clear, Normal breath sounds, No respiratory distress Cardiovascular: Regular rate Neurological: Normal speech Mental/Cognitive Status: Alert/Oriented X3, Normal for patient Cognitive Status: Within normal limits Plan Anesthesia Type: General Consent for Procedure(s) Verified and Reviewed: Yes Code Status: Attempt Resuscitation ASA classification: 3-Severe systemic disease Is this case an emergency?: No
[2022-12-26] MEDS ORDERED: ePHEDrine 50 MG/ML VIAL IVP PRN (07:49)
[2022-12-26] MEDS ORDERED: ONDANSETRON 4 MG/2 ML VIAL IVP PRN ×2 (07:49→09:34)
[2022-12-26] MEDS ORDERED: HYDROmorphone 0.5 MG/0.5 ML SYRINGE IVP PRN ×2 (07:49→09:34)
[2022-12-26] MEDS ORDERED: NALOXONE 0.4 MG/ML VIAL IVP PRN (07:49)
[2022-12-26] MEDS ORDERED: ATROPINE ABBOJECT 1 MG/10 ML SYRINGE IVP PRN (07:49)
[2022-12-26] MEDS ORDERED: MORPHINE 2 MG/ML CARPUJECT IVP PRN (07:49)
[2022-12-26] MEDS ORDERED: METOCLOPRAMIDE 10 MG/2 ML VIAL IVP PRN (07:49)
[2022-12-26] MEDS ORDERED: fentaNYL 100 MCG/2 ML VIAL IVP PRN (07:49)
[2022-12-26] MEDS ORDERED: LACTATED RINGERS 1,000 ML IV SCH (08:00)
[2022-12-26] MEDS ORDERED: LIDOCAINE 1%-EPI 1:100000 20 ML MDV ONE (08:37)
[2022-12-26] MEDS ORDERED: BUPIVACAINE 0.5% PF 10 ML VIAL ONE (08:37)
[2022-12-26] MEDS ORDERED: PROPOFOL 500 MG/50 ML 500 MG/50 ML VIAL ONE (08:41)
[2022-12-26] MEDS ORDERED: LIDOCAINE MPF 2%-EPI 1:200000 20 ML VIAL SUBQ ONE ×2 (08:59)
[2022-12-26] MEDS ORDERED: BUPIVACAINE 0.5% PF 30 ML VIAL SUBQ ONE ×2 (08:59)
[2022-12-26] MEDS ORDERED: GLYCOPYRROLATE 1 MG/5 ML VIAL ONE (09:04)
[2022-12-26] MEDS ORDERED: DEXAMETHASONE 4 MG/ML VIAL ONE (09:07)
[2022-12-26] MEDS ORDERED: ONDANSETRON 4 MG/2 ML VIAL ONE (09:07)
[2022-12-26] MEDS ORDERED: ACETAMINOPHEN 500 MG TABLET PO PRN (09:34)
[2022-12-26] MEDS ORDERED: oxyCODONE 5 MG TABLET PO PRN (09:34)
--- NOTE | 2022-12-26 09:38 | OPERATIVE REPORT ---
Operative Report - General Procedure Date: 12/26/22 Planned Procedure: Left breast,Reexcision of superior margin Pre-Op Diagnosis: Invasive ductal carcinoma Procedure Performed: Left breast,Reexcision of superior margin Post Op Diagnosis: Invasive ductal carcinoma - Procedure Note Primary Surgeon: Dr. Jyoti Christian MD Anesthesia Provider: Ish Weeks CRNA Anesthesia Technique: Local, MAC Pathology: Left breast, superior margin reexcision, oriented short superior, long lateral, double anterior Estimated Blood Loss (mL): 5 Indications: The patient had an excisional biopsy which upstaged to invasive ductal carcinoma. The superior margin was positive. The patient was seen and evaluated in clinic where we discussed the risks, benefits, and alternatives of reexcision with superior margin. The patient's case was also discussed with her medical oncologist, and sentinel lymph node biopsy was felt not to be helpful in determining this patient's course of treatment. Therefore, no axillary node sampling is being performed. We discussed the risks, benefits, and alternatives of reexcision of the superior margin including bleeding, infection, damage to surrounding structures, and the need for further surgeries or procedures. The patient and her son voiced understanding, their questions were answered, and they wish to proceed. A consent was signed by the patient in clinic. Findings: 1.Superior margin reexcised Complications: None - Other Other Information/Narrative: The patient was taken to the operating room and placed in the supine position. Preop antibiotics were given. ERAS medications were given. The patient was prepped and draped in the usual sterile fashion. A preop surgical timeout was performed. Attention was turned to the patient's right breast. The patient's previous incision was anesthetized with local and reopened using a 15 blade scalpel. The previous lumpectomy cavity was reopened. The superior margin was identified, and reexcised. It was oriented short superior, long lateral, double anterior on the back table. The lumpectomy cavity was inspected and there were no palpable abnormalities. The edges of the lumpectomy cavity were inspected for hemostasis. The cavity was irrigated with warm normal saline and additional local was injected. Again hemostasis was confirmed. Next, the deep dermal tissues were closed with 3-0 Vicryl in an interrupted fashion. The skin was closed with 4-0 Monocryl in a running subcuticular fashion. The patient tolerated the procedure well. There were no complications. All soft and needle counts were correct. The patient was transferred to the recovery room in stable condition.
[2022-12-26 10:19] VITALS: BP 12/63; O2SAT 98
--- NOTE | 2022-12-26 10:30 | ANESTHESIA POST OP EVALUATION ---
Anesthesia Post Eval - Post Anesthesia Eval Vitals: Last Vital Signs Temp 36.1 C L 12/26/22 10:15 Pulse 83 12/26/22 10:15 Resp 15 12/26/22 10:15 BP 12/63 L 12/26/22 10:15 Pulse Ox 98 12/26/22 10:15 O2 Flow Rate CV Function Including HR & BP: Stable Pain Control: Satisfactory Nausea & Vomiting: Negative Mental Status: Baseline Respiratory Status: Airway Patent Hydration Status: Satisfactory Anesthesia Complications: None
== END 2022-12-26 07:23 | disposition home or self-care (01) ==
LOC: SDS 07:22
PROVIDERS: ATTEND Surgery
PROC: 0HBU0ZZ Excision of Left Breast, Open Approach (ICD-10-PCS; principal; 2022-12-26 08:45)
DX: C50.912 Malignant neoplasm of unspecified site of left female breast (principal); E11.42 Type 2 diabetes mellitus with diabetic polyneuropathy; I10 Essential (primary) hypertension; Z17.0 Estrogen receptor positive status [ER+]
CPT/HCPCS: 19301; A9270; J7120

== ENCOUNTER 2023-05-11 07:11 | Outpatient (CLI) | payer MEDICARE, OTHER ==
[2023-05-11 12:01] LABS: BASOPHILS # (AUTO) 0.1 10^3/uL (0.0-0.1); BASOPHILS % (AUTO) 0.8 %; EOSINOPHILS # (AUTO) 0.3 10^3/uL (0.0-0.7); EOSINOPHILS % (AUTO) 3.8 %; HCT - HEMATOCRIT 41.7 % (37.0-47.0); HGB - HEMOGLOBIN 13.1 g/dL (12.0-16.0); LYMPHOCYTES # (AUTO) 1.6 10^3/uL (1.5-3.5); LYMPHOCYTES % (AUTO) 24.4 %; MEAN CORPUSCULAR HGB CONC 31.4 g/dL (32.0-36.0); MEAN CORPUSCULAR VOLUME 95.4 fL (81.0-99.0); MEAN PLATELET VOLUME 9.8 fL (7.9-10.8); MONOCYTES # (AUTO) 0.6 10^3/uL (0.0-1.0); MONOCYTES % (AUTO) 8.7 %; NEUTROPHILS # (AUTO) 4.1 10^3/uL (1.5-6.6); PLT - PLATELET COUNT 361 10^3/uL (130-450); RED BLOOD COUNT 4.37 10^6/uL (4.20-5.40); RED CELL DISTRIBUTION WIDTH 13.4 % (12.0-15.0); WHITE BLOOD COUNT 6.6 x10^3/uL (4.8-10.8)
[2023-05-11 12:19] LABS: ALBUMIN 4.1 g/dL (3.2-5.5); ALBUMIN/GLOBULIN RATIO 1.2 (1.0-2.2); ALKALINE PHOSPHATASE 80 IU/L (42-121); ALT ALANINE AMINOTRANSFERASE 19 IU/L (10-60); AST ASPARTATE AMINOTRANSFERASE 21 IU/L (10-42); BILIRUBIN,TOTAL 0.7 mg/dL (0.2-1.0); BUN - BLOOD UREA NITROGEN 17 mg/dL (6-20); CALCIUM 9.4 mg/dL (8.5-10.3); CARBON DIOXIDE - CO2 31 mmol/L (21-32); CHLORIDE 104 mmol/L (101-111); CHOL/HDL RATIO 2.8 (<4.4); CHOLESTEROL 217 mg/dL; CREATININE 0.8 mg/dL (0.6-1.3); GFR - MDRD 68 (>89); GLUCOSE 113 mg/dL (74-104); HDL CHOLESTEROL 77 mg/dL; LDL CHOLESTEROL,CALCULATED 118 mg/dL; LDL/HDL RATIO 1.5 (<4.4); POTASSIUM 4.2 mmol/L (3.5-4.5); SODIUM 139 mmol/L (135-145); TOTAL PROTEIN 7.4 g/dL (6.4-8.9); TRIGLYCERIDES 109 mg/dL (48-352); URIC ACID 7.1 mg/dL (2.3-6.6); VLDL CHOLESTEROL 22 mg/dL
[2023-05-11 12:26] LABS: THYROID STIMULATING HORMONE 0.04 uIU/mL (0.34-5.60)
== END 2023-05-11 07:12 | disposition home or self-care (01) ==
LOC: LAB.N 07:11
PROVIDERS: ATTEND Nurse Practitioner
DX: I10 Essential (primary) hypertension (principal); Z79.899 Other long term (current) drug therapy; E11.9 Type 2 diabetes mellitus without complications; Z13.220 Encounter for screening for lipoid disorders; E03.9 Hypothyroidism, unspecified; M10.9 Gout, unspecified
CPT/HCPCS: 36415; 80053; 80061; 83721; 84439; 84443; 84550; 85025

== ENCOUNTER 2023-06-29 12:22 | Outpatient (CLI) | payer MEDICARE, OTHER ==
--- NOTE | 2023-06-30 08:54 | Mammography Report ---
BILATERAL DIGITAL DIAGNOSTIC MAMMOGRAM 3D/2D WITH SPOT COMPRESSION - LEFT BREAST POST LUMPECTOMY: 06/15 CLINICAL: Post left lumpectomy. Due for bilateral exam. Comparison is made to exams dated: 11/28/2022 specimen, 11/28/2022 mammogram, 08/23/2022 mammogram, 08/11 mammogram, 07/12/2022 mammogram, and 02/13/2018 mammogram - [facility]. There are scattered areas of fibroglandular density in both breasts (category b / 25%-50% glandular t issue). There are post surgical changes from prior lumpectomy in the left breast. No significant masses, calc ifications, or other findings are seen in either breast. IMPRESSION: BENIGN Left breast status post lumpectomy. No mammographic evidence of malignancy. A 1 year screening mammog chuy is recommended. Findings and recommendations were conveyed to the patient during today's evaluation. Based on the Tyrer Cuzick model (a risk assessment model) the patient's lifetime risk is 0.3% and her 10 year risk is 0.0%. According to the ACR, ACS, and NCCN guidelines, an annual breast MRI exam gilmar g with mammogram is recommended if the patient's lifetime risk is 20% or greater. This exam was interpreted at Station ID: [id number]. NOTE: For mammograms, a report in lay terms will be sent to the patient. Approximately 15% of breast malignancies will not be visualized mammographically. In the management of a palpable breast mass, a negative mammogram must not discourage biopsy of a clinically suspicious lesion. Electronically Signed By: Marianna Ng M.D., PH.D eb/:06/29/2023 13:09:35 ACR BI-RADS Category 2: Benign Finding(s) 3342F PARENCHYMAL PATTERN: (A) - The breast(s) demonstrate(s) scattered fibroglandular densities. BI-RADS CATEGORY: (2) - 2 RECOMMENDATION: (ANNUAL) - Recommend routine annual screening mammography. [id number] 1 year screening LATERALITY: (B)
== END 2023-06-29 12:23 | disposition home or self-care (01) ==
LOC: DI 12:22
PROVIDERS: ATTEND Internal Medicine Hematology & Oncology
DX: C50.912 Malignant neoplasm of unspecified site of left female breast (principal); R92.323 Mammographic fibroglandular density, bilateral breasts

== ENCOUNTER 2023-10-27 07:36 | Outpatient (CLI) | payer MEDICARE, OTHER ==
[2023-10-27 12:32] LABS: ESTIMATED AVERAGE GLUCOSE 134 mg/dL (70-100); HEMOGLOBIN A1c% 6.3 % (4.27-6.07)
[2023-10-27 12:47] LABS: CREATININE,URINE 103.2 mg/dL; MICROALBUMIN,URINE < 0.7 mg/dL
== END 2023-10-27 07:37 | disposition home or self-care (01) ==
LOC: LAB.N 07:36
PROVIDERS: ATTEND Nurse Practitioner
DX: E11.9 Type 2 diabetes mellitus without complications (principal)
CPT/HCPCS: 36415; 82043; 82570; 83036